=== PATIENT | male | born 1985 | race Caucasian/White ===

== ENCOUNTER 2020-02-17 05:13 | Emergency (ER) | payer OTHER ==
[~2020-02-17] VITALS: Ht 185.4 cm; Wt 136.4 kg
[2020-02-17 05:46] LABS: GLUCOSE,POINT OF CARE 133 MG/DL (70-110)
[2020-02-17 09:24] VITALS: BP 110/76
== END 2020-02-17 09:00 | disposition left against medical advice (07) ==
LOC: EMS 05:13
DX: R06.00 Dyspnea, unspecified (principal); I10 Essential (primary) hypertension; F17.210 Nicotine dependence, cigarettes, uncomplicated; F12.90 Cannabis use, unspecified, uncomplicated
CPT/HCPCS: 93005